=== PATIENT | female | born 1955 | race Caucasian/White ===

== ENCOUNTER 2023-07-30 07:46 | Outpatient (CLI) | payer MEDICARE, SELFPAY ==
--- NOTE | 2023-07-30 08:15 | CRLHL7_ITS ---
For Patients: As a result of the Century Cures Act, medical imaging exams and procedure reports are released immediately into your electronic medical record. You may view this report before your referring provider. If you have questions, please contact your health care provider. Technique: Double-contrast esophagram performed after the uneventful administration of effervescent crystals and thick barium followed by thin barium. Fluoroscopy time 59 seconds. Indication: Dysphagia Comparison: None. Findings: Esophagus: Decreased clearance of contrast from the esophagus. No mucosal abnormality. No stricture or ulcer. No mass. Small sliding hernia measuring 2.5 cm. No tertiary contractions. Gastroesophageal reflux: Present to the midesophagus. 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 Dictated by Ozzie Kimball MD @ 07/30/2023 9:54:40 AM (Electronically Signed)
== END 2023-07-30 07:47 | disposition home or self-care (01) ==
PROVIDERS: PCP Family Medicine; Visit Provider Otolaryngology
DX: R13.10 Dysphagia, unspecified (principal); K21.9 Gastro-esophageal reflux disease without esophagitis; K44.9 Diaphragmatic hernia without obstruction or gangrene
CPT/HCPCS: 74221